=== PATIENT | female | born 1980 | race Caucasian/White ===

== ENCOUNTER 2018-06-11 16:25 | Emergency (ER) | payer OTHER ==
--- NOTE | 2018-06-11 16:55 | EDPHY ---
H & P Time Seen by Provider: 06/11/18 16:38 HPI/ROS: CHIEF COMPLAINT: Abdominal pain,"I think I miscarrying" HISTORY OF PRESENT ILLNESS: The patient is a 37-year-old female G 1 para 0 who presents emergency department stating that she is approximately 10 weeks . She states her last menstrual period was 2 and half months ago. She took a test on Wednesday which was positive. Since that time she has had some lower abdominal, suprapubic cramping. She has also had some vaginal spotting. This is been minimal. Today she developed severe suprapubic pain. She describes this is 06/01. She took 5 Advil and now her pain is much improved. She denies fevers or chills. No nausea vomiting. No dysuria or frequency. She has noticed blood in her urine. REVIEW OF SYSTEMS: 10 systems were reveiwed and are negative with the exception of the elements mentioned in the history of present illness. Past Medical/Surgical History: Negative Past surgical history: [place] closure when she was a child Social history: The patient does not smoke. Smoking Status: Never smoked Physical Exam: Vitals noted GENERAL: Well-appearing, in no acute distress, alert. HEENT: Eyes normal to inspection, normal pharynx, no signs of dehydration. NECK: Normal, supple. RESPIRATORY: Clear to auscultation bilaterally, no rales, rhonchi or wheezing. CVS: Regular rate and rhythm, no rubs, murmurs, or gallops. ABDOMEN: Soft, mild suprapubic tenderness to palpation with no rebound or guarding, no organomegaly. BACK: Normal to inspection, no CVA tenderness. SKIN: Normal color, no rash, warm, dry. No pallor. EXTREMITIES: No pedal edema, no calf tenderness, no Homans sign or cords, no joint swelling. NEURO/PSYCH: Alert and oriented, normal mood and affect, normal motor sensory exam. Constitutional: Initial Vital Signs Temperature (C) 36.9 C 06/11/18 16:28 Heart Rate 18 L 06/11/18 16:28 Respiratory Rate 73 H 06/11/18 16:28 Blood Pressure 135/92 H 06/11/18 16:28 O2 Sat (%) 96 06/11/18 16:28 O2 Delivery Mode Room Air Allergies/Adverse Reactions: No Known Allergies Allergy (Unverified 06/11/18 16:31) Home Medications: Medication Instructions Recorded NK [No Known Home Meds] 06/11/18 Medical Decision Making - Diagnostics Imaging Results: Imaging Impressions Obstetrics Ultrasound 06/11/18 16:56 Impression: of unknown location, with no visible intrauterine gestation, with a simple-appearing fluid collection in the vagina, of uncertain clinical significance, which could represent a gestational sac or hemorrhage. Consider correlation with serial hCG with ultrasound follow up as clinically warranted. Findings discussed with ANDI GODFREYNUNO 06/11/2018 at 1755. ED Course/Re-evaluation: In the emergency department I discussed possible etiologies with the patient. I answered all her questions. IV was placed. Laboratory studies and ultrasound were obtained. Patient's blood type is O-positive. Her urine is positive for blood. Chemistry panel is unremarkable. CBC is normal. Beta quant is pending Beta quant came back at 5131. Ultrasound: Please refer the dictated report by Dr. Gamez. There is no IUP noted. There is fluid in the vagina. Discussed results with the patient. She consented to pelvic exam FEMALE : Patient has a normal external pelvic exam. No lesions or discharge. Speculum exam revealed a slightly open cervix. No active bleeding from the cervix. There was tissue in the vagina. The tissue was sent to the laboratory for pathology. I discussed the case with the compliance vice president diesel mechanic construction, Dr. Dafne Kohler. She recommended repeat beta quant in 48 hr. I discussed the plan with the patient. I answered all her questions. She was given warnings prior to leaving. Differential Diagnosis: My differential includes but is not limited to , ectopic , threatened , miscarriage, urinary tract infection, anemia - Data Points Laboratory Results: Laboratory Results 06/11/18 16:49 06/11/18 16:49 06/11/18 06/11/18 06/11/18 17:10 16:49 16:49 WBC RBC Hgb Hct MCV MCH MCHC RDW Plt Count MPV Neut % (Auto) Lymph % (Auto) Gilchrist % (Auto) Eos % (Auto) Baso % (Auto) Nucleat RBC Rel Count Absolute Neuts (auto) Absolute Lymphs (auto) Absolute Monos (auto) Absolute Eos (auto) Absolute Basos (auto) Absolute Nucleated RBC Immature Gran % Immature Gran # Sodium 138 mEq/L mEq/L (135-145) Potassium 3.7 mEq/L mEq/L (3.3-5.0) Chloride 105 mEq/L mEq/L (97-110) Carbon Dioxide 22 mEq/l mEq/l (22-31) Anion Gap 11 mEq/L mEq/L (6-14) BUN 11 mg/dL mg/dL (7-23) Creatinine 0.8 mg/dL mg/dL (0.6-1.0) Estimated GFR > 60 Glucose 124 mg/dL H mg/dL (70-100) Calcium 9.3 mg/dL mg/dL (8.5-10.4) Beta HCG, Quant 5131.70 mIU/mL H mIU/mL (0.00-4.83) Urine Color YELLOW Urine Appearance CLEAR Urine pH 5.0 (5.0-7.5) Ur Specific Owen 1.020 (1.002-1.030) Urine Protein NEGATIVE (NEGATIVE) Urine Ketones NEGATIVE (NEGATIVE) Urine Blood 3+ H (NEGATIVE) Urine Nitrate NEGATIVE (NEGATIVE) Urine Bilirubin NEGATIVE (NEGATIVE) Urine Urobilinogen NEGATIVE EU EU (0.2-1.0) Ur Leukocyte Esterase NEGATIVE (NEGATIVE) Urine RBC 50-182 /hpf H /hpf (0-3) Urine WBC 0-1 /hpf /hpf (0-3) Ur Epithelial Cells TRACE /lpf /lpf (NONE-1+) Urine Mucus 2+ /lpf H /lpf (NONE-1+) Urine Glucose NEGATIVE (NEGATIVE) Patient ABO/Rh O POSITIVE 06/11/18 16:49 WBC 7.60 10^3/uL 10^3/uL (3.80-9.50) RBC 4.12 10^6/uL L 10^6/uL (4.18-5.33) Hgb 13.2 g/dL g/dL (12.6-16.3) Hct 38.8 % % (38.0-47.0) MCV 94.2 fL fL (81.5-99.8) MCH 32.0 pg pg (27.9-34.1) MCHC 34.0 g/dL g/dL (32.4-36.7) RDW 12.4 % % (11.5-15.2) Plt Count 217 10^3/uL 10^3/uL (150-400) MPV 9.6 fL fL (8.7-11.7) Neut % (Auto) 63.5 % % (39.3-74.2) Lymph % (Auto) 25.5 % % (15.0-45.0) Gilchrist % (Auto) 8.0 % % (4.5-13.0) Eos % (Auto) 1.7 % % (0.6-7.6) Baso % (Auto) 0.8 % % (0.3-1.7) Nucleat RBC Rel Count 0.0 % % (0.0-0.2) Absolute Neuts (auto) 4.82 10^3/uL 10^3/uL (1.70-6.50) Absolute Lymphs (auto) 1.94 10^3/uL 10^3/uL (1.00-3.00) Absolute Monos (auto) 0.61 10^3/uL 10^3/uL (0.30-0.80) Absolute Eos (auto) 0.13 10^3/uL 10^3/uL (0.03-0.40) Absolute Basos (auto) 0.06 10^3/uL 10^3/uL (0.02-0.10) Absolute Nucleated RBC 0.00 10^3/uL 10^3/uL (0-0.01) Immature Gran % 0.5 % % (0.0-1.1) Immature Gran # 0.04 10^3/uL 10^3/uL (0.00-0.10) Sodium Potassium Chloride Carbon Dioxide Anion Gap BUN Creatinine Estimated GFR Glucose Calcium Beta HCG, Quant Urine Color Urine Appearance Urine pH Ur Specific Owen Urine Protein Urine Ketones Urine Blood Urine Nitrate Urine Bilirubin Urine Urobilinogen Ur Leukocyte Esterase Urine RBC Urine WBC Ur Epithelial Cells Urine Mucus Urine Glucose Patient ABO/Rh Departure - Departure Disposition: Home, Routine, Self-Care Clinical Impression: Threatened Abdominal pain Qualifiers: Abdominal location: lower abdomen, unspecified Qualified Code(s): R10.30 - Lower abdominal pain, unspecified Condition: Good Instructions: Threatened Miscarriage (ED) Additional Instructions: You need to have your blood redrawn at 48 hr. Consult lab to have this laboratory studies performed. You need close follow-up with the compliance vice president. You were given contact information. Referrals: Mckay Ortega MD [Primary Care Provider] - As per Instructions Dafne Kohler MD [Medical Doctor] - 06/13/18
[2018-06-11 17:23] LABS: PLATELET COUNT 217 10^3/uL (150-400)
[2018-06-11 19:11] VITALS: BP 113/86
[2018-06-11] MEDS ORDERED: HYDROCOD/APAP 5/325 PREPACK#6 BTL TAKEHOME ONE (19:21)
== END 2018-06-11 19:33 | disposition home or self-care (01) ==
DX: O20.0 Threatened abortion (principal); R10.30 Lower abdominal pain, unspecified; Z67.40 Type O blood, Rh positive